=== PATIENT | male | born 1945 | race Two or more races ===

== ENCOUNTER 2022-10-17 00:46 | Emergency (ER) | payer OTHER ==
[~2022-10-17] VITALS: Ht 177.8 cm; Wt 90.7 kg
--- NOTE | 2022-10-17 01:42 | NUR ---
JAIR FROM [facility] C/O UNWITNESSED GLF X2 HRS AGO. ABRASION / HEMATOMA TO R FOREHEAD. +ASP. -LOC. PT A/OX3. TOLERATING R/A WELL WITH NO RESP DISTRESS. SAFETY MEASURES IN PLACE.
--- NOTE | 2022-10-17 01:49 | NUR ---
EMT AT PT'S BEDSIDE TO CLEAN ABRASION
--- NOTE | 2022-10-17 01:57 | NUR ---
PT TAKEN TO CT VIA [facility]
--- NOTE | 2022-10-17 02:08 | NUR ---
PT RETURNED TO ER BED [address]
--- NOTE | 2022-10-17 04:30 | NUR ---
COVID SWAB DONE AND SENT TO LAB
--- NOTE | 2022-10-17 04:34 | NUR ---
DR. HOANG DO ON PHONE CALL WITH DR. EAGLE RADIOLOGIST
--- NOTE | 2022-10-17 05:02 | NUR ---
IV RFA #20G S/L BLOOD COLLECTED AND SENT TO LAB
--- NOTE | 2022-10-17 05:02 | NUR ---
SAMPLE PULLER AT PT'S BEDSIDE
[2022-10-17 05:16] LABS: BASOPHILS % (AUTO) 0.5 % (0.0-2.0); EOSINOPHILS % (AUTO) 2.4 % (0.0-6.0); HEMATOCRIT 36 % (39-51); HEMOGLOBIN 11.4 g/dL (13.5-17.5); LYMPHOCYTES # (AUTO) 2.1 K/uL (0.8-4.8); LYMPHOCYTES % (AUTO) 32.6 % (20.0-44.0); MEAN CORPUSCULAR HGB CONC 32 g/dl (31.0-36.0); MEAN CORPUSCULAR VOLUME 88 fL (80-96); MONOCYTES # (AUTO) 0.6 K/uL (0.1-1.30); MONOCYTES % (AUTO) 9.2 % (2.0-12.0); NEUTROPHILS # (AUTO) 3.5 K/uL (1.8-8.9); NEUTROPHILS % (AUTO) 55.3 % (43.0-81.0); PLATELET COUNT (AUTO) 178 K/uL (150-450); RED BLOOD CELL COUNT(AUTO) 4.15 MIL/uL (4.5-6.0); WHITE BLOOD COUNT (AUTO) 6.3 K/uL (4.3-11.0)
[2022-10-17 05:34] LABS: CALCIUM, SERUM 8.4 mg/dL (8.5-10.1); CARBON DIOXIDE 29 mmol/L (21-32); CHLORIDE 105 mmol/L (98-107); CREATININE 1.3 mg/dL (0.6-1.3); GLUCOSE 222 mg/dL (74-106); POTASSIUM 3.8 mmol/L (3.5-5.1); SODIUM SERUM 143 mmol/L (136-145); UREA NITROGEN, BLOOD 22 mg/dL (7-18)
--- NOTE | 2022-10-17 05:43 | NUR ---
CALLED [facility] AND PAGED ONLINE MERCHANDISING SPECIALIST
--- NOTE | 2022-10-17 05:55 | NUR ---
DR HOANG ON THE PHONE WITH [facility]
--- NOTE | 2022-10-17 06:49 | NUR ---
[facility] [place] [facility] [place] [facility]
--- NOTE | 2022-10-17 07:46 | NUR ---
[facility] CALLED ASKED FOR COVID RESULT NEGATIVE (-) WILL UPDATE WITH TRANSFER INFO.
--- NOTE | 2022-10-17 08:05 | NUR ---
PT GOING TO [facility] ICU BED [address]. STUART & INDEPENDENT FILM MAKER DR. FLORES TRANSPORT WILL BE WITH [facility]. PLEASE CALL [phone] FOR REPORT.
--- NOTE | 2022-10-17 08:23 | NUR ---
[place] ETA [id number]
--- NOTE | 2022-10-17 09:09 | NUR ---
report given to SHAHRZAD GUSTAFSON
--- NOTE | 2022-10-17 09:13 | NUR ---
CALLED [facility] [phone] RADHA ASKING FOR PEER TO PEER AGAIN. DR. ZURITA WILL CALL US BACK.
--- NOTE | 2022-10-17 09:14 | NUR ---
doesnt want to go to [place], will transfer back to [facility], will arrange transport
--- NOTE | 2022-10-17 10:58 | NUR ---
emt at bedside to pickup pt; endorsement given
[2022-10-17 10:59] VITALS: BP 129/91
--- NOTE | 2022-10-17 11:03 | NUR ---
IV removed. Catheter intact and site benign. Pressure and 4x4 applied to site. No bleeding noted.
--- NOTE | 2022-10-17 11:05 | NUR ---
transport at bed side for brain picker , going back to [facility]
== END 2022-10-17 11:09 ==
LOC: ER 00:48
DX: I62.03 Nontraumatic chronic subdural hemorrhage (principal); S00.81XA Abrasion of other part of head, initial encounter; W06.XXXA Fall from bed, initial encounter; Y92.122 Bedroom in nursing home as the place of occurrence of the external cause; I48.91 Unspecified atrial fibrillation; R94.31 Abnormal electrocardiogram [ECG] [EKG]; Z20.822 Contact with and (suspected) exposure to COVID-19; Z79.01 Long term (current) use of anticoagulants; I25.2 Old myocardial infarction; I11.0 Hypertensive heart disease with heart failure; I50.9 Heart failure, unspecified; Z95.5 Presence of coronary angioplasty implant and graft
CPT/HCPCS: 99291; 72125; 87426; 93005; 71045; 70450; 85025; 80048; 36415; 84484; 85730; C9803